=== PATIENT | male | born 1995 | race Caucasian/White ===

== ENCOUNTER 2020-04-06 07:17 | Emergency (ER) | payer BC ==
[2020-04-06 07:30] VITALS: BP 132/72; PULSE 73; BMI 23.7
--- NOTE | 2020-04-06 07:51 | PDOC ---
Rapid Medical Evaluation Chief Complaint: Injury Time Seen by Provider: 04/06/20 07:30 Medical Evaluation: Vital Signs Temp Pulse Resp BP Pulse Ox 73 16 132/72 99 04/06/20 07:27 04/06/20 07:27 04/06/20 07:27 04/06/20 07:27 04/06/20 07:31 CC: punched a wall yesterday, now with rt hand pain Exam: depressed 4th mcp with edema, no crepitus, no other acute findings Plan: xray hand Discharge Disposition - Diagnosis Hand injury - Referrals - Patient Instructions - Post Discharge Activity
--- NOTE | 2020-04-06 08:04 | PDOC ---
History of Present Illness - General Chief Complaint: Injury Stated Complaint: HAND PAIN Time Seen by Provider: 04/06/20 07:30 History Source: Patient Exam Limitations: No Limitations - History of Present Illness Initial Comments: 04/06/20 07:54 HPI 25 YOM with no sig medical history presenting with right hand pain/ s/p injury. He states he punched a block of wood yesterday, today noticed increased right hand pain and swelling when he woke up. no paresthesias or weakness no other associated injuries. RH dominant. Review of Systems MUSCULOSKELETAL: +right pain and swelling. No muscle pain/arthralgias. SKIN: no redness or skin changes, no discharge, no rash. No wounds. Hematologic: no easy bruising/bleeding. NEUROLOGIC: No weakness, numbness or tingling. Allergic/Immunologic: no allergies All other systems reviewed and negative, or as documented in HPI. physical exam General: NAD, well appearing HEENT: NCAT, EOMI, PERRL. airway patent Resp: no distress, speaking full sentences. Vascular: 2+ radial pulses symmetric and equal. MSK: shoulder abduction/adduction/flexion/extension and prox strength 5/5 actively against resistance. 5/5 wrist flexion and extension against strength. 5/5 hand adduction and abduction against resistance. sensation grossly intact in median/radial/ulnar distribution. distal skip tracer strength 5/5. 2+ radialis pulses bilaterally and symmetric. +right dorsal hand on the 4th metacarpal tenderness, swelling and mild ecchymosis. Neuro: alert, no focal neurologic deficits Skin: color normal color, warm and well perfused. Cap refill <2 sec. +right dorsal hand tenderness and swelling and mild ecchymosis but FROM there 04/06/20 08:12 Past History - Psycho-Social/Smoking History Smoking History: Never smoked Information on smoking cessation initiated: No - Substance Abuse Hx (Audit-C & DAST Scrn) How often the patient has a drink containing alcohol: Never Score: In Men: 4 or > Positive; In Women: 3 or > Positive: 0 Screen Result (Pos requires Nsg. Audit-10AR): Negative *Physical Exam - Vital Signs Last Vital Signs Temp Pulse Resp BP Pulse Ox 73 16 132/72 99 04/06/20 07:27 04/06/20 07:27 04/06/20 07:27 04/06/20 07:27 Medical Decision Making - Medical Decision Making 04/06/20 08:15 Vital Signs Temp Pulse Resp BP Pulse Ox 73 16 132/72 99 04/06/20 07:27 04/06/20 07:27 04/06/20 07:27 04/06/20 07:27 VS reviewed, wnl Xray rt hand normal joint space alignment, no acute fx or dislocation. no boxer's fx no e/o compartment syndrome. no e/o infection NVI, more likely sprain/contusion of the hand, without fx on xray imaging Discussed results with patient. FRANKO wrap for comfort with volar splint,. Rest ice and elevation. Pain control with OTC meds including motrin/tylenol as needed every 6 hours; no narcotics needed. Ortho followup provided. Please return to ED for increased pain, weakness, numbness/tingling, fever, or redness. Discharge - Discharge Information Problems reviewed: Yes Clinical Impression/Diagnosis: Hand injury Qualifiers: Encounter type: initial encounter Sprain of hand, right Qualifiers: Encounter type: initial encounter Qualified Code(s): S63.91XA - Sprain of unspecified part of right wrist and hand, initial encounter Condition: Improved Disposition: HOME - Admission No - Follow up/Referral Referrals: Owen Bassett MD [Staff Physician] - Rayo Miller MD [Staff Physician] - - Patient Discharge Instructions Patient Printed Discharge Instructions: DI for Hand Injury, DI for Hand Pain - Post Discharge Activity
== END 2020-04-06 08:22 | disposition home or self-care (01) ==
LOC: JER 07:17
DX: S63.91XA Sprain of unspecified part of right wrist and hand, initial encounter (principal)
CPT/HCPCS: 73130-TC-RT-FY; 99283-25